=== PATIENT | female | born 1945 | race Caucasian/White ===

== ENCOUNTER 2016-06-09 11:59 | Inpatient (IN) | payer MEDICARE ==
[~2016-06-09] VITALS: Ht 158.8 cm; Wt 83.5 kg
[2016-06-09] MEDS ORDERED: SIMV40TA3 PO (13:10)
[2016-06-09] MEDS ORDERED: TRIA1CAP3 PO (13:11)
[2016-06-09] MEDS ORDERED: METO50TA10 PO (13:11)
[2016-06-09] MEDS ORDERED: TRAM50TA PO (13:12)
[2016-06-09] MEDS ORDERED: LEVO150T PO (13:12)
[2016-06-09 13:20] VITALS: BP 105/69
[2016-06-09] MEDS ORDERED: HYDROCODONE/APAP 5/325MG TABLET. PO PRN ×2 (14:00)
[2016-06-09] MEDS ORDERED: MORPHINE SULFATE 2 MG/ML DISP.SYRIN. IV PRN (14:00)
[2016-06-09] MEDS ORDERED: TRAMADOL 50 MG TABLET. PO PRN (14:00)
[2016-06-09 14:05] LABS: BASO # 0.1 x10^3/uL (0.0-0.2); BASO % 1 % (0-3); EOS % 0 % (0-3); HEMATOCRIT 43.5 % (36.0-47.0); HEMOGLOBIN 14.8 g/dL (12.0-15.5); LYMPH # 0.9 x10^3/uL (1.0-4.8); LYMPH % 10 % (24-48); MEAN CORPUSCULAR HEMOGLOBIN 32 pg (25-35); MEAN CORPUSCULAR HGB CONC 34 g/dL (31-37); MEAN CORPUSCULAR VOLUME 94 fL (79-100); MONO # 0.7 x10^3/uL (0.0-1.1); MONO % 8 % (0-9); NEUT # 7.5 x10^3uL (1.8-7.7); NEUT % 82 % (31-73); PLATELET COUNT 195 x10^3/uL (140-400); RED BLOOD COUNT 4.61 x10^6/uL (3.50-5.40); RED CELL DISTRIBUTION WIDTH 12.8 % (11.5-14.5); WHITE BLOOD COUNT 9.2 x10^3/uL (4.0-11.0)
[2016-06-09 14:18] LABS: ALBUMIN 3.7 g/dL (3.4-5.0); CALCIUM 9.2 mg/dL (8.5-10.1); CREATININE 1.2 mg/dL (0.6-1.0); POTASSIUM 3.4 mmol/L (3.5-5.1); TOTAL BILIRUBIN 0.7 mg/dL (0.2-1.0); TOTAL PROTEIN 7.5 g/dL (6.4-8.2)
--- NOTE | 2016-06-09 14:55 | RAD ---
Left knee radiographs History: Left knee and hip pain. Comparison: None. Findings: AP, lateral, and oblique views of the left knee. Left total knee arthroplasty is present. No definite joint effusion is seen. No periprosthetic fracture is appreciated. No hardware complication is seen. No acute fracture or dislocation is identified. Impression: Left knee arthroplasty. No acute abnormality identified.
--- NOTE | 2016-06-09 14:57 | RAD ---
Pelvis and left hip radiographs History: Left hip pain. Comparison: None. Findings: AP view of the pelvis. AP and frog-leg views left hip. No acute fracture or dislocation is identified. No significant hip degeneration is appreciated. Impression: Unremarkable pelvis and left hip radiographs for age.
[2016-06-09 15:10] VITALS: BP 91/58
[2016-06-09] MEDS: IV NORMAL SALINE 1,000ML 1,000 ML IV SCH ×2 (16:02→20:35)
[2016-06-09 20:18] VITALS: BP 91/57
[2016-06-09] MEDS ORDERED: ACETAMINOPHEN 325 MG TABLET PO ONE (20:30)
[2016-06-09 23:38] VITALS: BP 105/54
[2016-06-10 00:09] LABS: BILIRUBIN,URINE NEG (NEG); CLARITY,URINE CLEAR; COLOR,URINE YELLOW; GLUCOSE,URINE NEG (NEG); NITRITE,URINE NEG (NEG); RBC,URINE 0 /HPF (0-2); UROBILINOGEN,URINE 0.2 mg/dL (0.2 mg/dL); WBC,URINE OCC /HPF (0-4)
[2016-06-10 00:10] LABS: BACTERIA,URINE FEW /HPF (0-FEW); SQUAMOUS EPITHELIAL CELL,UR FEW /LPF
[2016-06-10 05:32] VITALS: BP 107/65
[2016-06-10] MEDS ORDERED: LEVOTHYROXINE 150 MCG TABLET PO SCH (06:00)
[2016-06-10 06:33] LABS: CREATININE 1.1 mg/dL (0.6-1.0); GFR 48.7; POTASSIUM 3.1 mmol/L (3.5-5.1)
[2016-06-10 06:42] LABS: BASO % 1 % (0-3); EOS # 0.1 x10^3/uL (0.0-0.7); EOS % 2 % (0-3); HEMATOCRIT 36.3 % (36.0-47.0); HEMOGLOBIN 12.4 g/dL (12.0-15.5); LYMPH # 1.4 x10^3/uL (1.0-4.8); LYMPH % 25 % (24-48); MEAN CORPUSCULAR HEMOGLOBIN 32 pg (25-35); MEAN CORPUSCULAR HGB CONC 34 g/dL (31-37); MEAN CORPUSCULAR VOLUME 94 fL (79-100); MONO # 0.6 x10^3/uL (0.0-1.1); MONO % 10 % (0-9); NEUT # 3.7 x10^3uL (1.8-7.7); NEUT % 63 % (31-73); PLATELET COUNT 156 x10^3/uL (140-400); RED BLOOD COUNT 3.85 x10^6/uL (3.50-5.40); RED CELL DISTRIBUTION WIDTH 12.8 % (11.5-14.5); WHITE BLOOD COUNT 5.8 x10^3/uL (4.0-11.0)
[2016-06-10] MEDS ORDERED: POTASSIUM CHLORIDE 20 MEQ TABLET.ER. PO ONE (07:00)
[2016-06-10] MEDS ORDERED: PNEUMOC CONJ VACC 23-VALENT 0.5 ML VIAL. VAX IM ONE (09:00)
[2016-06-10] MEDS ORDERED: SIMVASTATIN 40 MG TABLET. PO SCH (09:00)
[2016-06-10] MEDS ORDERED: TRIAMTERENE/HCTZ 37.5/25MG TABLET. PO SCH (09:00)
[2016-06-10] MEDS ORDERED: METOPROLOL SUCC 24HR ER 50 MG TAB.ER.24H. PO SCH (09:00)
[2016-06-10] MEDS ORDERED: BUPIVACAINE MPF 0.25% 10 ML VIAL. ONE (11:00)
[2016-06-10] MEDS ORDERED: TRIAMCINOLONE ACETONIDE 40 MG/ML VIAL. ONE (11:00)
[2016-06-10 12:58] VITALS: BP 119/72
--- NOTE | 2016-06-10 14:37 | DS ---
DATE OF DISCHARGE: 06/10/2016 HOSPITAL COURSE: A 71-year-old female came in through the office yesterday. She was in severe pain as 12/15. The patient also was quite lethargic. She was unable to move, but more importantly mentally she was just completely zapped. The patient can barely move her head or any other element of her body. There was some concern the patient might have been having some type of other encephalopathy of some sort. As a result of this, the patient was brought in to the hospital for observation for possible TIA. The patient did recovery nicely. We also did a procedure. She was complaining of severe hip and back pain and those were also obtained as well. The patient was admitted and placed on some fluids. She made good progress during the rest of her hospitalization. There were no complications noted and the patient after injection of her left knee was discharged home. IMPRESSION: Encephalopathy secondary to pain, severe degenerative arthritis in the left knee, and hypokalemia. She had no shortness of breath. No chest pain. Oxygen saturation remained in the upper 90s on room air. PLAN: The patient will be discharged home. She will follow up tomorrow with . ____ orthopedic surgeon. See MRARobyn. Decreased activity. ZENIA NATARAJAN MD DR: BOOGIE/emiliana JOB#: [id number] / [id number]
--- NOTE | 2016-06-10 14:42 | DS ---
DATE OF DISCHARGE: 06/09/2016 Computers were down this morning when the patient was reviewed and as a result of this, the patient was noted after computers came up and she had already left that her potassium was slightly low as well as her blood pressure was stable, but certainly we want to hold her blood pressure medications as well as slightly elevated D-dimer. All of these were conveyed by phone message to her son and she will be following up in the next day or so holding her blood pressure medications and taking additional potassium and will be responding to a V/Q scan or CT scan as an outpatient. ZENIA NATARAJAN MD DR: BOOGIE/emiliana JOB#: [id number] / [id number]
--- NOTE | 2016-06-10 16:05 | OP ---
DATE OF SURGERY: 06/10/2016 The patient had severe metabolic encephalopathy, but she had also severe left knee pain to the point where she cannot walk on it. The patient was given the opportunity to have injections to the left knee with steroid injection by Dr. Muniz, and after permission was given, I told her possible complications of no benefit versus infection, loss of limb, cellulitis to the knee and so forth that the patient agreed to take the benefits versus the risks, and after permission was given, the knee was prepped in the usual fashion using Betadine. Sterile technique used. An injection of 2 mL of Marcaine and 2 mL of Solu-Medrol were injected into the knee joint after sterilely prepping the knee of course without complication. The patient had much good relief with that and actually was able to move the knee somewhat better than any time previous to the last week or so. IMPRESSION: Degenerative arthritis of the knee with injection of the knee procedure note as noted above by Dr. Muniz. ZENIA MUNIZ MD DR: BOOGIE/nts JOB#: [id number] / [id number]
== END 2016-06-10 11:50 | disposition home or self-care (01) | DRG 553 ==
LOC: 1 SOUTH 12:08
PROVIDERS: ADMIT Family Medicine; ATTEND Family Medicine
PROC: 3E0U33Z Introduction of Anti-inflammatory into Joints, Percutaneous Approach (ICD-10-PCS; principal; 2016-06-10)
PROC: 3E0U3BZ Introduction of Anesthetic Agent into Joints, Percutaneous Approach (ICD-10-PCS; 2016-06-10)
DX: M17.12 Unilateral primary osteoarthritis, left knee (principal); G93.41 Metabolic encephalopathy; E87.6 Hypokalemia
CPT/HCPCS: 36415; 73502; 73562; 80048; 80053; 81001; 85027; 85379; 90732; J3301; J3490; J7030

== ENCOUNTER → 2017-02-05 | Outpatient (CLI) | payer MEDICARE ==
[~2017-02-05] MED LIST: IOHEXOL 300 MG/ML 75 ML VIAL. IV ONE; LEVO150T PO; METO50TA29 PO; SIMV40TA3 PO; TRAM50TA PO; TRIA1CAP3 PO
--- NOTE | 2017-02-05 17:43 | RAD ---
CT angiogram of the chest Indication: Elevated d-dimer. Shortness of breath. History of recent trauma. Technique: CT angiogram of the chest with 75 mL of Omnipaque 300 with multiplanar reformats. Comparison: None Findings: Diagnostic quality PE study. There are no central, subsegmental or segmental filling defects in the pulmonary arteries. Heart is normal in size. Coronary artery disease noted. No pericardial or pleural effusion. No axillary, mediastinal or hilar adenopathy. Calcified subcarinal and right hilar lymph nodes noted. Scattered right lung calcified granulomas. No focal consolidation or findings to suggest pulmonary infarct. Visualized noncontrast sections through the liver, spleen, pancreas, adrenals are within normal limits. Status post cholecystectomy. No suspicious bony lesions. Mild multilevel degenerative disc disease. Impression: No PE. No pneumonia. PQRS Compliance Statement: One or more of the following individualized dose reduction techniques were utilized for this examination: 1. Automated exposure control 2. Adjustment of the mA and/or kV according to patient size 3. Use of iterative reconstruction technique
== END | disposition home or self-care (01) ==
LOC: CT 16:55
PROVIDERS: ATTEND Family Medicine
DX: I25.10 Atherosclerotic heart disease of native coronary artery without angina pectoris (principal); M51.04 Intervertebral disc disorders with myelopathy, thoracic region; J94.8 Other specified pleural conditions; F17.200 Nicotine dependence, unspecified, uncomplicated; Z90.49 Acquired absence of other specified parts of digestive tract
CPT/HCPCS: 71275; Q9967

== ENCOUNTER → 2017-02-25 | Outpatient (CLI) | payer MEDICARE ==
[~2017-02-25] MED LIST changes: +IOHEXOL 240 MG/ML 50ML VIAL. ONE
--- NOTE | 2017-02-25 10:16 | RAD ---
Indication: Lower abdominal pain. Axial imaging through the abdomen and pelvis was performed after the administration of intravenous contrast. Comparison is made with prior CT from 02/10/2016. The lung bases are free of acute infiltrates. Multiple calcified granulomas in the right middle lobe and lower lobe are again noted. No discrete liver mass is identified. The gallbladder is surgically absent. The pancreas and spleen are unremarkable. No adrenal mass is identified. The kidneys are unremarkable. Aorta is calcified but nonaneurysmal. There is a short segment of significant wall thickening involving the transverse colon just distal to the hepatic flexure. This extends a distance approximately 7 cm and is concerning for a colonic neoplasm. Minimal infiltration of the adjacent pericolonic fat is also seen. No obstruction is identified. The small bowel loops are normal caliber. There is a small fat-containing ventral hernia. No ascites is seen. The bladder is unremarkable. Impression: Significant wall thickening/mass involving a segment of transverse colon, concerning for colon neoplasm. Further evaluation with endoscopy is recommended. PQRS Compliance Statement: One or more of the following individualized dose reduction techniques were utilized for this examination: 1. Automated exposure control 2. Adjustment of the mA and/or kV according to patient size 3. Use of iterative reconstruction technique
== END | disposition home or self-care (01) ==
LOC: CT 08:25
PROVIDERS: ATTEND Family Medicine
DX: K43.9 Ventral hernia without obstruction or gangrene (principal); I70.0 Atherosclerosis of aorta; J84.10 Pulmonary fibrosis, unspecified; F17.200 Nicotine dependence, unspecified, uncomplicated; Z90.49 Acquired absence of other specified parts of digestive tract
CPT/HCPCS: 74177; Q9966; Q9967

== ENCOUNTER → 2017-05-04 | Outpatient (CLI) | payer MEDICARE ==
[~2017-05-04] MED LIST changes: -IOHEXOL 240 MG/ML 50ML VIAL. ONE; -IOHEXOL 300 MG/ML 75 ML VIAL. IV ONE
== END | disposition home or self-care (01) ==
LOC: SURG 15:02
PROVIDERS: ATTEND Anesthesiology
DX: M47.816 Spondylosis without myelopathy or radiculopathy, lumbar region (principal); M51.36 Other intervertebral disc degeneration, lumbar region; M79.1 Myalgia
CPT/HCPCS: 99204

== ENCOUNTER → 2021-01-10 | Outpatient (CLI) | payer MEDICARE ==
[~2021-01-10] MED LIST changes: +SIMV40TA18 PO; -SIMV40TA3 PO
--- NOTE | 2021-01-10 15:28 | RAD ---
Examination: Esophagram. History: Dysphagia Fluoroscopic time 0.6 minutes. Total fluoroscopic images 11 Findings/ impression: Esophagram shows normal esophageal motility and distention. There is no stricture, extrinsic compress ion, mass, mucosal defect, gastroesophageal reflux, or hiatal hernia. A 13 mm capsule is swallowed an d passes the GE junction without difficulty. Electronically signed by: Aidan Patton MD (01/10/2021 3:25 PM) [id number]
== END ==
LOC: RAD 08:25
PROVIDERS: ATTEND Otolaryngology
DX: R13.10 Dysphagia, unspecified (principal)
CPT/HCPCS: 74220

== ENCOUNTER → 2021-07-02 | Outpatient (CLI) | payer MEDICARE ==
--- NOTE | 2021-07-02 13:20 | RAD ---
EXAM: Right knee, 3 views HISTORY: Right knee pain. COMPARISON: None. FINDINGS: No fractures are identified. There are moderate osteophytes along the medial compartment with only mi ld joint space narrowing. Meniscal chondrocalcinosis is noted. Alignment is normal. There is a small joint effusion. Atherosclerotic calcifications are noted. IMPRESSION: 1. Mild medial compartmental osteoarthritis. Small joint effusion. 2. Chondrocalcinosis of the menisci is usually a senescent finding. Correlate clinically to exclude d eposition diseases such as CPPD. Electronically signed by: Con Neumann MD (07/02/2021 1:18 PM) [id number]
== END ==
LOC: RAD 09:56
PROVIDERS: ATTEND Orthopaedic Surgery
DX: M17.11 Unilateral primary osteoarthritis, right knee (principal); M11.261 Other chondrocalcinosis, right knee; M25.461 Effusion, right knee; M25.761 Osteophyte, right knee; M25.861 Other specified joint disorders, right knee
CPT/HCPCS: 73562

== ENCOUNTER → 2021-07-16 | Outpatient (CLI) | payer MEDICARE ==
--- NOTE | 2021-07-16 15:57 | RAD ---
EXAM: Bilateral knees, 3 views. HISTORY: Pain. COMPARISON: 07/02/2021 FINDINGS: 3 views of both knees are obtained. There is a left knee arthroplasty in expected position. There is a displaced fracture of the superior left patella. There is the chronic given the absence o f significant left knee effusion. There is right medial compartment joint space narrowing, spurring a nd chondrocalcinosis. There is enthesopathy along the superior right patella. There is a small right knee effusion. IMPRESSION: 1. Mild medial compartment predominant osteoarthritis of the right knee with small joint effusion. 2. Left knee arthroplasty in expected position. 3. Displaced fracture involving the superior left patella, possibly chronic given the absence of a si gnificant joint effusion. Correlate for pain in this location. Electronically signed by: Vianney Vargas MD (07/16/2021 3:55 PM) [id number]
[2021-07-16 15:58] LABS: BASO # 0.1 x10^3/uL (0.0-0.2); BASO % 1 % (0-3); EOS # 0.1 x10^3/uL (0.0-0.7); EOS % 2 % (0-3); HEMATOCRIT 43.6 % (36.0-47.0); HEMOGLOBIN 14.7 g/dL (12.0-15.5); LYMPH # 1.8 x10^3/uL (1.0-4.8); LYMPH % 31 % (24-48); MEAN CORPUSCULAR HEMOGLOBIN 32 pg (25-35); MEAN CORPUSCULAR HGB CONC 34 g/dL (31-37); MEAN CORPUSCULAR VOLUME 96 fL (79-100); MONO # 0.6 x10^3/uL (0.0-1.1); MONO % 9 % (0-9); NEUT # 3.4 x10^3uL (1.8-7.7); NEUT % 57 % (31-73); PLATELET COUNT 182 x10^3/uL (140-400); RED BLOOD COUNT 4.56 x10^6/uL (3.50-5.40); RED CELL DISTRIBUTION WIDTH 12.4 % (11.5-14.5)
[2021-07-16 17:01] LABS: SEDIMENTATION RATE 8 (0-25)
== END ==
LOC: RAD 15:09
PROVIDERS: ATTEND Orthopaedic Surgery
DX: S82.092A Other fracture of left patella, initial encounter for closed fracture (principal); M17.11 Unilateral primary osteoarthritis, right knee; G89.29 Other chronic pain; Z96.652 Presence of left artificial knee joint; M25.861 Other specified joint disorders, right knee; M11.262 Other chondrocalcinosis, left knee; X58.XXXA Exposure to other specified factors, initial encounter; Y93.89 Activity, other specified; Y92.89 Other specified places as the place of occurrence of the external cause; Y99.8 Other external cause status
CPT/HCPCS: 36415; 73565; 85025; 85651; 86140; 73560-50

== ENCOUNTER → 2021-07-31 | Outpatient (CLI) | payer MEDICARE ==
--- NOTE | 2021-08-01 16:56 | RAD ---
Three-phase bone scan of the knees 07/31/2021 CLINICAL HISTORY: Left knee pain. History of left knee replacement 7 years ago. TECHNIQUE: After the intravenous administration of 25.1 mCi of technetium 99m MDP, flow and immediate blood pool imaging of both knees was performed using the gamma camera. Delayed images were obtained 3 hours. FINDINGS: Comparison is made to radiographs of both knees dated 07/16/2021. Slightly increased flow to the right knee when compared to the left is seen. Increased blood pool to the right knee when compared to the left is noted. On the delayed images. Photopenic areas are seen w ithin the left knee which correspond to the patient's TKA. Slightly increased activity surrounds the prosthetic components. No focal area of abnormal activity is seen to suggest definite evidence of pro sthetic component loosening. Increased activity is seen involving the right knee, particularly in the region of the medial compartment which corresponds to osteoarthritic changes on the patient's radiog raphs. IMPRESSION: Post left TKA. No area of abnormal activity is seen to suggest evidence of component loos ening. Electronically signed by: Elbert Quezada MD (08/01/2021 4:54 PM) [id number]
== END ==
LOC: NM 08:06
PROVIDERS: ATTEND Orthopaedic Surgery
DX: M25.562 Pain in left knee (principal); G89.29 Other chronic pain; Z96.652 Presence of left artificial knee joint
CPT/HCPCS: 78315; A9503